=== PATIENT | female | born 1960 | race Caucasian/White ===

== ENCOUNTER → 2016-09-01 | Outpatient (CLI) | payer BC ==
--- NOTE | ~2016-09-01 | MY11 ---
[facility] A Service of [facility] RADIOLOGY TEXT RESULTS PATIENT: BECKY JAUREGUI I LOCATION: [facility] : 60 UNIT #: [id number] AGE: [address]: Cheryl Monroy SEX: F ORDER DR: [id number] [facility] [address] [place], [place] [address] [id number] MR#: [id number] Acc #: [id number] NAME: BECKY JAUREGUI : 1960 SEX: F STUDY DATE/TIME: 09/01/2016 8:33 UNIT: [facility] ROOM: STUDY DESCRIPTION: MY Mammogram Screening [facility] Attending Physician: Cheryl Monroy A.P.R.N. Referring Physician: Cheryl Monroy A.P.R.N. Ordering Physician: Cheryl Monroy A.P.R.N. Primary Care Physician: Masood Perez M.D. MEDICAL IMAGING REPORT This report is preliminary unless electronic signature is present EXAM Bilateral digital screening mammogram with CAD, 09/01/2016. INDICATION 56-year-old female for routine screening. No reported problems. No personal or family history of breast cancer. History of lumpectomy on the right 15 years ago. TECHNIQUE CC and MLO views of the breast were obtained and reviewed with an FDA-approved CAD device. COMPARISONS 07/31/2015, 06/06/2014, 03/15/2013 FINDINGS Scar marker in the upper outer right breast. Breast parenchyma is heterogeneously dense, degrading sensitivity of screening mammography. The pattern is unchanged. There is no new dominant nodule, mass, or suspicious cluster of microcalcifications. There are benign calcifications present. Faint parenchymal nodular densities in both breasts not significant changed for technical factors. IMPRESSION Benign dense mammogram. 1 year followup recommended. Patients over the age of 40 are entered into a reminder system with target due date for the next mammogram. A result letter will also be sent to the patient. BIRADS: 2 Benign finding. [facility] A Service [facility] RADIOLOGY TEXT RESULTS PATIENT: BECKY JAUREGUI I LOCATION: [facility] : 60 UNIT #: [id number] AGE: [address]: Cheryl Monroy SEX: F ORDER DR: Dictated by... Alexandro García M.D. THIS IS AN ELECTRONICALLY VERIFIED REPORT Alexandro García M.D. at 09/01/2016 5:23 PM HERMAN/paramjit TD: 09/01/2016 09:51 JOB #: [id number] MEDICAL IMAGING REPORT Page 1 of 1 COPY
== END | disposition home or self-care (01) ==
LOC: CWCC 08:23
DX: Z12.31 Encounter for screening mammogram for malignant neoplasm of breast (principal); Z98.890 Other specified postprocedural states
CPT/HCPCS: G0202